=== PATIENT | female | born 1950 | race Caucasian/White ===

== ENCOUNTER 2017-04-24 06:54 | Day surgery (SDC) | payer MEDICARE, OTHER ==
[~2017-04-24] VITALS: Ht 170.2 cm; Wt 90.5 kg
[~2017-04-24 06:54] MED LIST: CLOB.05TO; Estriol0.1 GM; MONT5TCH; Metrocream45 GM; NAPR220; Prilosec Otc20 MG; QUET25
== END 2017-04-24 10:10 | disposition home or self-care (01) ==
LOC: ORSCSDS 06:54
PROVIDERS: Student in an Organized Health Care Education/Training Program
PROC: 0QBP0ZZ Excision of Left Metatarsal, Open Approach (ICD-10-PCS; principal; 2017-04-24 08:30)
DX: Q66.7 Congenital pes cavus (principal); M89.8X9 Other specified disorders of bone, unspecified site; M79.672 Pain in left foot; K21.9 Gastro-esophageal reflux disease without esophagitis; Z79.899 Other long term (current) drug therapy
CPT/HCPCS: J2250; J2405; J3010; J7120

== ENCOUNTER → 2017-05-09 | Outpatient (CLI) | payer MEDICARE, OTHER | LOC: LAB EV 19:54 | DX: R30.0 Dysuria (principal) | CPT/HCPCS: 87086 ==

== ENCOUNTER 2017-06-03 06:52 | Day surgery (SDC) | payer MEDICARE, OTHER ==
[~2017-06-03] VITALS: Ht 170.2 cm; Wt 89.9 kg
== END 2017-06-03 08:32 | disposition home or self-care (01) ==
LOC: ORSCSDS 06:52
PROVIDERS: Internal Medicine Gastroenterology
PROC: 0DB68ZX Excision of Stomach, Via Natural or Artificial Opening Endoscopic, Diagnostic (ICD-10-PCS; principal; 2017-06-03 08:00)
PROC: 0DB58ZX Excision of Esophagus, Via Natural or Artificial Opening Endoscopic, Diagnostic (ICD-10-PCS; principal; 2017-06-03 08:00)
DX: K21.9 Gastro-esophageal reflux disease without esophagitis (principal); K22.70 Barrett's esophagus without dysplasia; K31.7 Polyp of stomach and duodenum; K20.9 Esophagitis, unspecified; K29.70 Gastritis, unspecified, without bleeding; K29.80 Duodenitis without bleeding; E66.9 Obesity, unspecified; Z87.891 Personal history of nicotine dependence; Z79.899 Other long term (current) drug therapy
CPT/HCPCS: 88305; 88342; J0330; J1980; J2405; J7120

== ENCOUNTER 2018-10-07 09:04 | Day surgery (SDC) | payer MEDICARE, OTHER ==
[~2018-10-07] VITALS: Ht 170.2 cm; Wt 90.3 kg
[~2018-10-07 09:04] MED LIST changes: +ACETAMINOPHEN PO; -CLOB.05TO; +CLOB.05TO TOP; +Flonase 0.05% N16 GM; +MIRALAX17 GM PO; -MONT5TCH; +MONT5TCH PO; -NAPR220; +NAPR220 PO; +PROGESTERONE100 MG PO; -Prilosec Otc20 MG; +Prilosec Otc20 MG PO; -QUET25; +QUET25 PO; +RIZATRIPTAN10 M1 PO
--- NOTE | 2018-10-07 09:35 | NUR ---
INTO [facility] Ambulatory in Day Surgery History, Chart, Medications and Allergies reviewed before start of procedure.Lungs clear T/O to Auscultation. Patient confirms NPO status and agrees with scheduled surgery.
--- NOTE | 2018-10-07 15:52 | NUR ---
ASSUMED CARE OF PATIENT. PATIENT WORKING WITH PHYSICAL THERAPY- REPORTS PAIN 7/10 AND HAS NAUSEA. MEDICATED WITH DILAUDID AND ZOFRAN
--- NOTE | 2018-10-07 17:48 | NUR ---
summary patient reports knee pain 10/24, has received ordered pain meds. patients nausea resolved after zofran and is eating regular diet. patient sitting in chair at this time with polar pack in place
--- NOTE | 2018-10-07 17:57 | NUR ---
patient reports pain 2/10 after dilaudid iv. patient eating dinner
--- NOTE | 2018-10-08 02:59 | NUR ---
REPORT GIVEN TO CHRISSIE, RN; PT A&O X4 T/O SHIFT. PT POD#1 R TKA; CAROL WRAP CDI; VSS. PPPX4; PT DENIES N/T IN EXT. NAUSEA AND PAIN MANAGED PER EMAR. PT UP TO TOILET AND XFER BETWEEN RECLINER AND BED WITH FWW, GB AND SBA. JOAQUIN'S AND SCD'S TO BLE'S. CALL LIGHT IN REACH;PT DEMONSTRATES USE.
[2018-10-08 04:25] LABS: BASOPHILS ABSOLUTE AUTO 0.01 K/mm3 (0.00-0.23); BASOPHILS PERCENT AUTO 0 % (0-2); EOSINOPHILS PERCENT AUTO 0 % (0-6); Hematocrit 37.5 % (33.0-51.0); Hemoglobin 12.3 g/dL (11.5-16.0); IMMATURE GRAN ABSOLUTE AUTO 0.06 K/mm3 (0.00-0.10); IMMATURE GRAN PERCENT AUTO 0 % (0-1); LYMPHOCYTES ABSOLUTE AUTO 1.65 K/mm3 (0.84-5.20); LYMPHOCYTES PERCENT AUTO 11 % (21-46); MONOCYTES ABSOLUTE AUTO 1.26 K/mm3 (0.16-1.47); MONOCYTES PERCENT AUTO 9 % (4-13); Mean Corpuscular HGB 31.4 pg (26.0-34.0); Mean Corpuscular HGB Conc 32.8 g/dL (31.5-36.5); Mean Corpuscular Volume 96 fL (80-100); Mean Platelet Volume 10.1 fL (9.1-12.4); NEUTROPHILS ABSOLUTE AUTO 11.77 K/mm3 (1.96-9.15); NEUTROPHILS PERCENT AUTO 80 % (41-73); Platelet Count 280 K/mm3 (150-400); RDW Coefficient Variation 12.8 % (11.7-14.2); RDW Standard Deviation 45.4 fL (35.1-46.3); Red Blood Cell Count 3.92 M/mm3 (3.80-5.20); White Blood Cell Count 14.75 K/mm3 (4.00-11.30)
[2018-10-08 04:40] LABS: Anion Gap 6 mmol/L (6-16); Blood Urea Nitrogen 16 mg/dL (8-24); Bun/Creatinine Ratio 18.3 (12.0-20.0); CO2, Blood 25 mmol/L (21-32); Calcium, Blood 8.4 mg/dL (8.5-10.1); Chloride, Blood 106 mmol/L (98-108); Creatinine, Blood 0.88 mg/dL (0.40-1.00); Glomerular Filtration Rate >60 (60-); Glucose, Blood 145 mg/dL (70-99); Magnesium, Blood 2.3 mg/dL (1.6-2.4); Potassium, Blood 4.3 mmol/L (3.5-5.5); Sodium, Blood 137 mmol/L (136-145)
--- NOTE | 2018-10-08 04:56 | NUR ---
SHIFT SUMMARY PT POD#1 RIGHT TKA. AAOX4. DISCOMFORT AT TOLERABLE LEVEL WITH X2 PO DILAUDID. NAUSEA CONTROLLED WITH ZOFRAN, NO EMESIS. DRESSING TO RIGHT KNEE C/D/I. PT UP TO RESTROOM SBA WITH FWW, TOLERATES WELL. PT RESTED INFREQUENTLY T/O NIGHT, REPORTING "I SLEEP BETTER IN MY OWN BED." PT SITTING UP IN BED AT THIS TIME WATCHING TV, CALL LIGHT IN REACH, FREDY.
[2018-10-08] MEDS ORDERED: ENOX40I SC (09:43)
[2018-10-08] MEDS ORDERED: HYDMOR2 PO (09:43)
[2018-10-08] MEDS ORDERED: PROM25 PO (09:44)
--- NOTE | 2018-10-08 10:04 | NUR ---
PT WORKING WITH THERAPY.
--- NOTE | 2018-10-08 12:19 | NUR ---
DISCHARGE: PT AND FAMILY REPORTS UNDERSTANDING OF DISCHARGE INSTRUCTIONS. PT SENT WITH BELONGINGS INCLUDING ICE MACHINE. PT GIVEN DRESSING SUPPLIES AND PAPERWORK INCLUDING SCRIPT. PT BEEN CLEARED TO GO HOME. PT REPORTS PAIN TOLERABLE ON PO PAIN MEDICATION.
== END 2018-10-08 12:22 | disposition home or self-care (01) ==
LOC: ORSCMMR 09:04 → ORD 10:45 → ORSCMMR 10:45 → SURS 14:10 → ORSCMMR 10-08 12:22 → SURS 10-08 12:22
PROVIDERS: Orthopaedic Surgery
PROC: 8E0YXBZ Computer Assisted Procedure of Lower Extremity (ICD-10-PCS; principal; 2018-10-07 10:45)
PROC: 0SRC0J9 Replacement of Right Knee Joint with Synthetic Substitute, Cemented, Open Approach (ICD-10-PCS; principal; 2018-10-07 10:45)
DX: M17.11 Unilateral primary osteoarthritis, right knee (principal); K21.9 Gastro-esophageal reflux disease without esophagitis; Z87.891 Personal history of nicotine dependence; Z79.899 Other long term (current) drug therapy
CPT/HCPCS: 36415; 73560-RT; 80048; 83735; 85025; 97110; 97116; 97162; 97530; C1713; C1776; J0171; J0735; J1100; J1170; J1650; J1885; J2250; J2405; J2704; J2795; J3370; J7120

== ENCOUNTER → 2018-10-15 | Outpatient (CLI) | payer MEDICARE, OTHER ==
[~2018-10-15] MED LIST changes: +CYCL10 PO; +ENOX40I SC; +HYDMOR2 PO; +PROM25 PO; +Vibramycin100 MG PO; +Zofran4 MG PO
[2018-10-15 16:19] LABS: BASOPHILS ABSOLUTE AUTO 0.04 K/mm3 (0.00-0.23); BASOPHILS PERCENT AUTO 0 % (0-2); EOSINOPHILS ABSOLUTE AUTO 0.11 K/mm3 (0.00-0.68); EOSINOPHILS PERCENT AUTO 1 % (0-6); Hemoglobin 12.1 g/dL (11.5-16.0); IMMATURE GRAN ABSOLUTE AUTO 0.07 K/mm3 (0.00-0.10); IMMATURE GRAN PERCENT AUTO 1 % (0-1); LYMPHOCYTES PERCENT AUTO 26 % (21-46); MONOCYTES ABSOLUTE AUTO 1.01 K/mm3 (0.16-1.47); MONOCYTES PERCENT AUTO 10 % (4-13); Mean Corpuscular HGB 31.4 pg (26.0-34.0); Mean Corpuscular HGB Conc 33.6 g/dL (31.5-36.5); Mean Corpuscular Volume 94 fL (80-100); Mean Platelet Volume 9.8 fL (9.1-12.4); NEUTROPHILS ABSOLUTE AUTO 6.46 K/mm3 (1.96-9.15); NEUTROPHILS PERCENT AUTO 62 % (41-73); Platelet Count 457 K/mm3 (150-400); RDW Coefficient Variation 13.5 % (11.7-14.2); RDW Standard Deviation 45.8 fL (35.1-46.3); Red Blood Cell Count 3.85 M/mm3 (3.80-5.20); White Blood Cell Count 10.39 K/mm3 (4.00-11.30)
[2018-10-15 16:27] LABS: Calcium, Blood 8.8 mg/dL (8.5-10.1); Potassium, Blood 3.7 mmol/L (3.5-5.5)
== END | disposition home or self-care (01) ==
LOC: LAB SHORT 16:06 → LAB EV 16:06
PROVIDERS: Physician Assistant
DX: M25.561 Pain in right knee (principal)
CPT/HCPCS: 80048; 85025

== ENCOUNTER 2018-10-17 13:25 | Emergency (ER) | payer MEDICARE, OTHER ==
[~2018-10-17] VITALS: Ht 170.2 cm; Wt 89.8 kg
[~2018-10-17 13:25] MED LIST changes: -CYCL10 PO; -Vibramycin100 MG PO; -Zofran4 MG PO
[2018-10-17 14:31] LABS: BASOPHILS ABSOLUTE AUTO 0.04 K/mm3 (0.00-0.23); BASOPHILS PERCENT AUTO 0 % (0-2); EOSINOPHILS ABSOLUTE AUTO 0.07 K/mm3 (0.00-0.68); EOSINOPHILS PERCENT AUTO 1 % (0-6); Hemoglobin 12.3 g/dL (11.5-16.0); IMMATURE GRAN ABSOLUTE AUTO 0.04 K/mm3 (0.00-0.10); IMMATURE GRAN PERCENT AUTO 0 % (0-1); LYMPHOCYTES ABSOLUTE AUTO 2.18 K/mm3 (0.84-5.20); LYMPHOCYTES PERCENT AUTO 24 % (21-46); MONOCYTES ABSOLUTE AUTO 0.87 K/mm3 (0.16-1.47); MONOCYTES PERCENT AUTO 9 % (4-13); Mean Corpuscular HGB 31.1 pg (26.0-34.0); Mean Corpuscular HGB Conc 32.4 g/dL (31.5-36.5); Mean Corpuscular Volume 96 fL (80-100); Mean Platelet Volume 9.7 fL (9.1-12.4); NEUTROPHILS ABSOLUTE AUTO 6.02 K/mm3 (1.96-9.15); NEUTROPHILS PERCENT AUTO 65 % (41-73); Platelet Count 506 K/mm3 (150-400); RDW Coefficient Variation 13.2 % (11.7-14.2); RDW Standard Deviation 47.2 fL (35.1-46.3); Red Blood Cell Count 3.95 M/mm3 (3.80-5.20); White Blood Cell Count 9.22 K/mm3 (4.00-11.30)
[2018-10-17 15:00] LABS: Alanine Aminotransfer (ALT/SGP 51 U/L (12-78); Albumin, Blood 3.4 g/dL (3.4-5.0); Albumin/Globulin Ratio 0.9 (0.8-1.8); Alk Phos 80 U/L (50-136); Anion Gap 7 mmol/L (6-16); Aspartate Aminotrans (AST/SGOT 32 U/L (12-37); Bilirubin, Total 0.5 mg/dL (0.1-1.0); Blood Urea Nitrogen 11 mg/dL (8-24); Bun/Creatinine Ratio 13.5 (12.0-20.0); CO2, Blood 26 mmol/L (21-32); Calcium, Blood 8.9 mg/dL (8.5-10.1); Chloride, Blood 107 mmol/L (98-108); Creatinine, Blood 0.82 mg/dL (0.40-1.00); Globulin, Blood 3.7 g/dL (2.2-4.0); Glomerular Filtration Rate >60 (60-); Glucose, Blood 132 mg/dL (70-99); Potassium, Blood 3.9 mmol/L (3.5-5.5); Sodium, Blood 140 mmol/L (136-145); Total Protein, Blood 7.1 g/dL (6.4-8.2)
[2018-10-17] MEDS ORDERED: Zofran4 MG PO (15:19)
[2018-10-17] MEDS ORDERED: Vibramycin100 MG PO (15:19)
[2018-10-17] MEDS ORDERED: CYCL10 PO (15:19)
== END 2018-10-17 15:32 | disposition home or self-care (01) ==
LOC: ER 13:25
PROVIDERS: Emergency Medicine
DX: T81.40XA Infection following a procedure, unspecified, initial encounter (principal); M19.90 Unspecified osteoarthritis, unspecified site; G43.909 Migraine, unspecified, not intractable, without status migrainosus; K21.9 Gastro-esophageal reflux disease without esophagitis; Z88.0 Allergy status to penicillin; Z88.2 Allergy status to sulfonamides; Z88.5 Allergy status to narcotic agent; Z79.899 Other long term (current) drug therapy; Z87.891 Personal history of nicotine dependence
CPT/HCPCS: 73560-RT; 80053; 85025; 99283-25

== ENCOUNTER 2018-10-19 21:15 | Emergency (ER) | payer MEDICARE, OTHER ==
[~2018-10-19] VITALS: Ht 170.2 cm; Wt 88.9 kg
[~2018-10-19 21:15] MED LIST changes: +CYCL10 PO; +Vibramycin100 MG PO; +Zofran4 MG PO
== END 2018-10-19 23:30 | disposition home or self-care (01) ==
LOC: ER 21:15
DX: G89.18 Other acute postprocedural pain (principal); M25.561 Pain in right knee; Z88.0 Allergy status to penicillin; Z88.2 Allergy status to sulfonamides; Z88.5 Allergy status to narcotic agent; Z79.899 Other long term (current) drug therapy; K21.9 Gastro-esophageal reflux disease without esophagitis; G43.909 Migraine, unspecified, not intractable, without status migrainosus; Z87.891 Personal history of nicotine dependence
CPT/HCPCS: 96372; 99283-25; J1885; J3010

== ENCOUNTER → 2019-03-03 | Outpatient (CLI) | payer MEDICARE, OTHER ==
[2019-03-05 16:07] LABS: HPV 16 Negative (Negative); HPV 18 Negative (Negative); HPV OTHER HR TYPES Negative (Negative)
== END | disposition home or self-care (01) ==
LOC: LAB 17:12 → LAB SHORT 17:12
PROVIDERS: Nurse Practitioner Women's Health
DX: Z12.4 Encounter for screening for malignant neoplasm of cervix (principal)
CPT/HCPCS: 87624; G0123

== ENCOUNTER → 2020-04-04 | Outpatient (CLI) | payer MEDICARE, OTHER | LOC: LAB 08:54 → LAB SHORT 08:54 | DX: D48.5 Neoplasm of uncertain behavior of skin (principal) | CPT/HCPCS: 88305 ==

== ENCOUNTER → 2022-02-01 | Outpatient (CLI) | payer MEDICARE, OTHER ==
[2022-02-01 18:22] LABS: Adenovirus F 40/41 Not Detected (NOT DETECT); Astrovirus Not Detected (NOT DETECT); Campylobacter Sp Not Detected (NOT DETECT); Cryptosporidium Not Detected (NOT DETECT); Cyclospora Cayetanensis Not Detected (NOT DETECT); E. Coli O157 Not Detected (NOT DETECT); Entamoeba Histolytica Not Detected (NOT DETECT); Enteroaggregative E. coli-EAEC Not Detected (NOT DETECT); Enteropathogenic E. coli-EPEC Detected (NOT DETECT); Enterotoxigenic E. coli-ETEC Not Detected (NOT DETECT); Giardia Lamblia Not Detected (NOT DETECT); Norovirus GI/GII Not Detected (NOT DETECT); Plesiomonas Shigelloides Not Detected (NOT DETECT); Rotavirus A Not Detected (NOT DETECT); Salmonella Sp Not Detected (NOT DETECT); Sapovirus Not Detected (NOT DETECT); Shiga Toxin-prod E. coli-STEC Not Detected (NOT DETECT); Shigella/Enteroin E. coli-EIEC Not Detected (NOT DETECT); Vibrio Cholerae Not Detected (NOT DETECT); Vibrio Sp Not Detected (NOT DETECT); Yersinia Enterocolitica Not Detected (NOT DETECT)
== END | disposition home or self-care (01) ==
LOC: LAB SHORT 13:00
PROVIDERS: Physician Assistant Medical
DX: R19.7 Diarrhea, unspecified (principal)
CPT/HCPCS: 87507

== ENCOUNTER 2022-06-20 10:00 | Day surgery (SDC) | payer MEDICARE, OTHER ==
[~2022-06-20] VITALS: Ht 170.2 cm; Wt 87.5 kg
[2022-06-20] MEDS ORDERED: PROG100 (10:43)
[2022-06-20] MEDS ORDERED: ESTRADIOL1 EAC2 (10:43)
[2022-06-20] MEDS ORDERED: ALEN70 (10:44)
== END 2022-06-20 13:08 | disposition home or self-care (01) ==
LOC: ORSCSDS 10:00
DX: K22.70 Barrett's esophagus without dysplasia (principal); R19.7 Diarrhea, unspecified; D12.3 Benign neoplasm of transverse colon; K57.50 Diverticulosis of both small and large intestine without perforation or abscess without bleeding; M35.00 Sjogren syndrome, unspecified; Z87.891 Personal history of nicotine dependence; Z79.899 Other long term (current) drug therapy
CPT/HCPCS: 88305; J2704; J7120

== ENCOUNTER → 2022-08-06 | Outpatient (CLI) | payer MEDICARE, OTHER ==
[~2022-08-06] MED LIST changes: +ALEN70; +ESTRADIOL1 EAC2; +PROG100
== END | disposition home or self-care (01) ==
LOC: PLD 08:08 → LAB SHORT 08:08
DX: L30.8 Other specified dermatitis (principal)
CPT/HCPCS: 88305